=== PATIENT | male | born 1975 | race Caucasian/White ===

== ENCOUNTER 2016-10-17 14:47 | Emergency (ER) | payer SELFPAY ==
[~2016-10-17] VITALS: Ht 170.2 cm; Wt 63.5 kg
[2016-10-17 14:49] VITALS: BP 133/88
== END 2016-10-17 15:18 | disposition left against medical advice (07) ==
LOC: ER 14:47 → EDBD 14:47 → ER 14:49
DX: R07.89 Other chest pain (principal); Z53.21 Procedure and treatment not carried out due to patient leaving prior to being seen by health care provider